=== PATIENT | male | born 1955 | race Caucasian/White ===

== ENCOUNTER 2017-01-02 08:23 | Day surgery (SDC) | payer OTHER ==
[~2017-01-02 08:23] MED LIST: LIDOCAINE HCL 1% MPF SOL ONE; PROPOFOL 500 MG/50 ML EMU IV ONE
[2017-01-02 10:47] VITALS: BP 153/87; PULSE 70; RESP 20; TEMP 97.5; O2SAT 98
== END 2017-01-02 10:55 | disposition home or self-care (01) | DRG 951 ==
LOC: SURG 08:23
PROVIDERS: ATTEND Surgery
DX: Z12.11 Encounter for screening for malignant neoplasm of colon (principal)
CPT/HCPCS: J2001; J2704

== ENCOUNTER 2017-12-11 08:53 | Day surgery (SDC) | payer OTHER ==
[~2017-12-11 08:53] MED LIST changes: -LIDOCAINE HCL 1% MPF SOL ONE
[2017-12-11 10:27] VITALS: TEMP 97.7
[2017-12-11 11:12] VITALS: BP 129/75; PULSE 52; RESP 20; O2SAT 99
== END 2017-12-11 11:00 | disposition home or self-care (01) | DRG 392 ==
LOC: SURG 08:53
PROVIDERS: ATTEND Surgery
DX: K21.9 Gastro-esophageal reflux disease without esophagitis (principal)
CPT/HCPCS: J2001; J2704

== ENCOUNTER 2018-05-20 07:18 | Emergency (ER) | payer OTHER ==
[2018-05-20 07:37] VITALS: RESP 16; TEMP 97.2
[2018-05-20 09:32] VITALS: BP 136/82; PULSE 60; O2SAT 99
== END 2018-05-20 08:51 | disposition home or self-care (01) | DRG 563 ==
LOC: ED 07:18
DX: S62.112A Displaced fracture of triquetrum [cuneiform] bone, left wrist, initial encounter for closed fracture (principal); W19.XXXA Unspecified fall, initial encounter
CPT/HCPCS: 29125; 73110; 99283